=== PATIENT | female | born 1965 | race American Indian/Alaskan Native ===

== ENCOUNTER 2017-09-12 14:02 | Emergency (ER) | payer MEDICAID ==
[2017-09-12 14:14] VITALS: RESP 18; TEMP 98.5; BMI 40.3
[2017-09-12] MEDS ORDERED: Tetracaine 0.5% Ophth 2 ML BOTTLE OD STA (14:32)
[2017-09-12] MEDS ORDERED: Tetracaine 0.5% Ophth 2 ML BOTTLE ONE (14:41)
--- NOTE | 2017-09-12 14:56 | ED PDOC ---
Arrival/HPI - General Chief Complaint: Eye Problem Time Seen by Provider: 09/12/17 14:32 Historian: Patient - History of Present Illness Narrative History of Present Illness (Text): 09/12/17 14:49 52 year old female, with past medical history of hypertension, presents to the emergency department complaining of itchiness and burning pain in the left eye, since today. Patient states similar symptoms in the past, consistent with her allergies. Patient denies any fevers, chills, headache, dizziness, chest pain, shortness of breath, dyspnea on exertion, cough, abdominal pain, nausea, vomiting, diarrhea, back pain, neck pain, urinary/bowel changes, or any other complaint. Time/Duration: 1-3 hours Symptom Onset: Gradual Symptom Course: Unchanged Quality: Burning Activities at Onset: Light Context: Home Past Medical History - Provider Review Nursing Documentation Reviewed: Yes - Cardiac Hx Cardiac Disorders: Yes Hx Hypertension: Yes - Pulmonary Hx Respiratory Disorders: Yes Hx Asthma: Yes - Psychiatric Hx Substance Use: No - Surgical History Hx Section: Yes - Suicidal Assessment Feels Threatened In Home Enviroment: No Family/Social History - Physician Review Nursing Documentation Reviewed: Yes Family/Social History: No Known Family HX Smoking Status: Never Smoked Hx Alcohol Use: No Hx Substance Use: No Allergies/Home Meds Allergies/Adverse Reactions: Allergies No Known Allergies Allergy (Verified 09/12/17 14:33) Home Medications: Home Meds Medication Instructions Recorded Confirmed Norvasc 10 mg PO DAILY 04/30/14 09/12/17 Review of Systems - Patients Enrolled in [employer] [X]: A conversation was conducted with the primary medical doctor. - Physician Review All systems were reviewed & negative as marked: Yes - Review of Systems Constitutional: absent: Fevers Eyes: Eye Pain, Other (Itchy left eye). absent: Vision Changes Respiratory: absent: SOB, Cough Cardiovascular: absent: Chest Pain Gastrointestinal: absent: Abdominal Pain, Stool Changes, Diarrhea, Nausea, Vomiting Genitourinary Female: absent: Dysuria, Urine Output Changes Neurological: absent: Headache, Dizziness Physical Exam - Physical Exam Narrative Physical Exam (Text): 09/12/17 14:59 Gen: VS reviewed, alert, well developed, well nourished, nontoxic, mild distress ENT: normal pharynx Eye: EOMI, PERRL. Redness to conjunctiva, with tenderness of globe. Neck: no JVD, supple, no adenopathy CV: regular rate, regular rhythm, no rubs,no murmur, no gallops, S1, S2, pulses equal and strong Pulm: no distress, clear to auscultation, no wheeze, no rhonchi, breath sounds equal, no rales Abd: soft, nontender, no guarding, no rebound, no rigidity, normal bowel sounds Ext: no edema Skin: good color, no rash, no cyanosis Psych: responds appropriately to questions, normal affect Neuro: oriented x3, CN2-12 intact grossly, motor intact, sensation intact Vital Signs Reviewed: Yes Vital Signs Temp Pulse Resp BP Pulse Ox 09/12/17 15:31 76 18 122/78 99 09/12/17 14:12 98.5 F 92 H 18 119/70 100 Temperature: Afebrile Blood Pressure: Normal Pulse: Regular Respiratory Rate: Normal Appearance: Positive for: Well-Appearing, Non-Toxic, Comfortable Pain Distress: Mild Mental Status: Positive for: Alert and Oriented X 3 Medical Decision Making ED Course and Treatment: 09/12/17 15:01 Impression: 52 year old female presents to the emergency department for itchiness and pain in the left eye. Plan: --Tetracaine -- Reassess and disposition Prior Visits: Notes and results from previous visits were reviewed. Progress Notes: 09/12/17 19:20 there was no abnormal fluerescein uptake, patient sleep in her contacts and was informed not to do that, patient actually reported relief when she removed her contacts in the ED, patient was placed on antibiotics with coverage for pseudomonas. refer to ophthmaology - Lab Interpretations Lab Results: Lab Results 09/12/17 14:16: POC Glucose (mg/dL) 97 - Medication Orders Current Medication Orders: Discontinued Medications Tetracaine HCl (Tetracaine 0.5% Ophth Soln) 0 drop OD STAT STA Stop: 09/12/17 14:33 Last Admin: 09/12/17 14:47 Dose: - Scribe Statement The provider has reviewed the documentation as recorded by the Scribe Mario Loaiza, training with [employer] All medical record entries made by the Scribe were at my direction and personally dictated by me. I have reviewed the chart and agree that the record accurately reflects my personal performance of the history, physical exam, medical decision making, and the department course for this patient. I have also personally directed, reviewed, and agree with the discharge instructions and disposition. Disposition/Present on Arrival - Present on Arrival Any Indicators Present on Arrival: No History of DVT/PE: No History of Uncontrolled Diabetes: No Urinary Catheter: No History of Decub. Ulcer: No History Surgical Site Infection Following: None - Disposition Have Diagnosis and Disposition been Completed?: Yes Diagnosis: Conjunctivitis Disposition: HOME/ ROUTINE Disposition Time: 19:18 Condition: GOOD Discharge Instructions (ExitCare): Conjunctivitis ([place]) Print Language: TAJIK Additional Instructions: you must follow up with a rehabilitation specialist to ensure healing of the eye. do no sleep with your contacts on. do not wear your contact in the left eye (infected eye) until it heals properly. Prescriptions: Ofloxacin Ophth 0.3% [Ocuflox Ophth 0.3%] 1 drop OS QID #1 bottle Referrals: oJe Cortés MD [Staff Provider] - Follow up with primary Forms: [employer] (Namibian)
[2017-09-12 15:32] VITALS: BP 122/78; PULSE 76; O2SAT 99
== END 2017-09-12 15:46 | disposition home or self-care (01) ==
LOC: ED 14:02
DX: H10.9 Unspecified conjunctivitis (principal); I10 Essential (primary) hypertension

== ENCOUNTER 2018-07-13 16:39 | Emergency (ER) | payer MEDICAID ==
[2018-07-13 16:41] VITALS: BMI 38.4
[2018-07-13 17:09] VITALS: BP 156/99; PULSE 71; RESP 18; TEMP 97.9; O2SAT 97
--- NOTE | 2018-07-13 17:57 | ED PDOC ---
Arrival/HPI - General Chief Complaint: Trauma Time Seen by Provider: 07/13/18 16:49 Historian: Patient - History of Present Illness Narrative History of Present Illness (Text): 07/13/18 16:49 Patient is a 53 y/o female, with a past medical history of hypertension, who presents to the emergency department complaining of left knee pain earlier today. Patient states she was at a salon when her left knee "gave out" and she fell to the ground, landing on her buttocks. Patient notes acute pain to left knee prior to knee "giving out". Patient informs of left knee pain when bending left lower extremity but states she is able to ambulate. Patient appreciates left knee pain currently in the Emergency department. Patient denies head injury, loss of consciousness, headaches, dizziness, nausea, vomiting, diarrhea, visual changes, neck pain, dysuria, hematuria, frequency, or any other complaints. Symptom Onset: Sudden Symptom Course: Unchanged Activities at Onset: Light Context: Home Past Medical History - Provider Review Nursing Documentation Reviewed: Yes - Cardiac Hx Cardiac Disorders: Yes Hx Hypertension: Yes - Pulmonary Hx Respiratory Disorders: Yes Hx Asthma: Yes - Psychiatric Hx Substance Use: No - Surgical History Hx Section: Yes Hx Tubal Ligation: Yes - Anesthesia Hx Anesthesia: Yes - Suicidal Assessment Feels Threatened In Home Enviroment: No Family/Social History - Physician Review Nursing Documentation Reviewed: Yes Family/Social History: Unknown Family HX Smoking Status: Never Smoked Hx Alcohol Use: No Hx Substance Use: No Allergies/Home Meds Allergies/Adverse Reactions: Allergies No Known Allergies Allergy (Verified 07/13/18 16:44) Home Medications: Home Meds Medication Instructions Recorded Confirmed Norvasc 10 mg PO DAILY 04/30/14 09/12/17 Review of Systems - Physician Review All systems were reviewed & negative as marked: Yes - Review of Systems Eyes: absent: Vision Changes Gastrointestinal: absent: Diarrhea, Nausea, Vomiting Genitourinary Female: absent: Dysuria, Frequency, Hematuria Musculoskeletal: Arthralgias (left knee pain). absent: Neck Pain, Other (head injury) Neurological: absent: Headache, Dizziness, Other (loss of consciousness) Physical Exam - Physical Exam Narrative Physical Exam (Text): 07/13/18 16:49 Gen: VS reviewed, alert, well developed, well nourished, nontoxic, mild distress. ENT: normal pharynx. Eye: EOMI, PERRL. Neck: no JVD, supple, no adenopathy. CV: regular rate, regular rhythm, no rubs, no murmur, no gallops, S1, S2, pulses equal and strong. Pulm: no distress, clear to auscultation, no wheeze, no rhonchi, breath sounds equal, no rales. Abd: soft, nontender, no guarding, no rebound, no rigidity, normal bowel sounds. Ext: tenderness to left anterior knee at patellar region Skin: good color, no rash, no cyanosis. Psych: responds appropriately to questions, normal affect. Neuro: oriented x 3, CN2-12 intact grossly, motor intact, sensation intact. Vital Signs Reviewed: Yes Vital Signs Temp Pulse Resp BP Pulse Ox 07/13/18 17:03 97.9 F 71 18 156/99 H 97 Temperature: Afebrile Blood Pressure: Hypertensive Pulse: Regular Respiratory Rate: Normal Appearance: Positive for: Well-Appearing, Non-Toxic, Comfortable Pain Distress: None Mental Status: Positive for: Alert and Oriented X 3 Medical Decision Making ED Course and Treatment: 07/13/18 18:34 patient informed of severe arthritis and necessity to follow up with orthopedic surgeon. - RAD Interpretation Radiology Orders: 07/13/18 17:04 KNEE WITH PATELLA LEFT 3 VIEW [RAD] Stat - Scribe Statement The provider has reviewed the documentation as recorded by the Scribe Murray Hamilton All medical record entries made by the Scribe were at my direction and personally dictated by me. I have reviewed the chart and agree that the record accurately reflects my personal performance of the history, physical exam, medical decision making, and the department course for this patient. I have also personally directed, reviewed, and agree with the discharge instructions and disposition. Disposition/Present on Arrival - Present on Arrival Any Indicators Present on Arrival: No History of DVT/PE: No History of Uncontrolled Diabetes: No Urinary Catheter: No History of Decub. Ulcer: No History Surgical Site Infection Following: None - Disposition Have Diagnosis and Disposition been Completed?: Yes Diagnosis: Arthritis of knee Disposition: HOME/ ROUTINE Disposition Time: 17:50 Patient Plan: Discharge Condition: STABLE Discharge Instructions (ExitCare): Osteoarthritis (DC) Additional Instructions: you must follow up with the orthopedic surgeon. you have severe arthritis in the left knee which was seen on xray. Prescriptions: Naproxen [Naprosyn] 500 mg PO BID #60 tablet Referrals: Julee Chen MD [Staff Provider] - Follow up with primary Darrel Quinn DO [Staff Provider] - Follow up with primary Forms: [employer] (Urdu), WORK NOTE
--- NOTE | 2018-07-13 17:59 | RAD ---
Date of service: 07/13/2018 PROCEDURE: Left Knee Radiographs. HISTORY: Pain. COMPARISON: None. TECHNIQUE: 3 views obtained. FINDINGS: BONES: There is diffuse bone demineralization. No acute displaced fracture or bone destruction. There is medial translation of the medial and lateral femoral condyles. JOINTS: There severe tricompartmental degenerative osteoarthrosis with reduced joint spaces, marginal osteophytes and tibial spiking, worse in the lateral compartment. JOINT EFFUSION: There is a small suprapatellar joint effusion. OTHER FINDINGS: None. IMPRESSION: Severe tricompartmental degenerative osteoarthrosis, worse in the lateral compartment with medial translation of the medial and lateral femoral condyles. Small suprapatellar joint effusion.
== END 2018-07-13 21:05 | disposition home or self-care (01) ==
LOC: ED 16:39
DX: M17.12 Unilateral primary osteoarthritis, left knee (principal); I10 Essential (primary) hypertension